=== PATIENT | male | born 1945 | race Two or more races ===

== ENCOUNTER → 2017-01-03 | Outpatient (CLI) | payer MEDICARE, BC ==
[2017-01-03 09:36] LABS: CLARITY URINE CLEAR (CLEAR); COLOR URINE YELLOW (YELLOW); GLUCOSE URINE NEGATIVE (NEGATIVE); KETONES URINE TRACE (NEGATIVE); LEUKOCYTE ESTERASE URINE NEGATIVE (NEGATIVE); NITRITE URINE NEGATIVE (NEGATIVE); OCCULT BLOOD URINE NEGATIVE (NEGATIVE); PROTEIN URINE NEGATIVE (NEGATIVE); UROBILINOGEN URINE 0.2 E.U./dL (0.2-1.0)
[2017-01-03 09:40] LABS: BASOPHILS % 0.8 % (0.0-2.0); EOSINOPHILS % 1.3 % (0.0-5.0); HEMATOCRIT. 41.5 % (42.0-52.0); HEMOGLOBIN. 14.1 g/dL (14.0-18.0); LYMPHOCYTES % 36.6 % (20.0-50.0); MEAN CORPUSCULAR HEMOGLOBIN 30.4 pg (28.0-32.0); MEAN CORPUSCULAR VOLUME 89.7 fL (80.0-94.0); MEAN PLATELET VOLUME 10.7 fl (7.4-10.4); MONOCYTES % 9.1 % (2.0-8.0); NEUTROPHILS % 52.2 % (40.0-76.0); PLATELET 128 x1000/uL (130-400); RED BLOOD CELL COUNT 4.62 mill/uL (4.7-6.1); RED CELL DISTRIBUTION WIDTH 13.7 % (11.6-14.6)
[2017-01-03 09:59] LABS: CARBON DIOXIDE 27 mEq/L (21-32); CHLORIDE 105 mEq/L (98-107); HDL CHOLESTEROL 97 mg/dL (40-59); LDL CHOLESTEROL 86 mg/dL (5-100)
== END | disposition home or self-care (01) ==
LOC: LAB 09:13
PROVIDERS: ATTEND Internal Medicine Nephrology
DX: R53.83 Other fatigue (principal); R79.89 Other specified abnormal findings of blood chemistry; R39.15 Urgency of urination; R97.20 Elevated prostate specific antigen [PSA]
CPT/HCPCS: 36415; 80053; 80061; 81003; 83036; 84153; 85025

== ENCOUNTER → 2017-04-05 | Outpatient (CLI) | payer MEDICARE, BC ==
[2017-04-05 12:28] LABS: BASOPHILS % 0.8 % (0.0-2.0); EOSINOPHILS % 2.3 % (0.0-5.0); HEMATOCRIT. 46.5 % (42.0-52.0); HEMOGLOBIN. 15.5 g/dL (14.0-18.0); LYMPHOCYTES % 40.8 % (20.0-50.0); MEAN CORPUSCULAR HEMOGLOBIN 30.6 pg (28.0-32.0); MEAN CORPUSCULAR VOLUME 91.6 fL (80.0-94.0); MEAN PLATELET VOLUME 10.9 fl (7.4-10.4); MONOCYTES % 10.8 % (2.0-8.0); NEUTROPHILS % 45.3 % (40.0-76.0); PLATELET 114 x1000/uL (130-400); RED BLOOD CELL COUNT 5.08 mill/uL (4.7-6.1); RED CELL DISTRIBUTION WIDTH 13.8 % (11.6-14.6)
[2017-04-05 12:30] LABS: CARBON DIOXIDE 31 mEq/L (21-32); CHLORIDE 107 mEq/L (98-107); HDL CHOLESTEROL 110 mg/dL (40-59); LDL CHOLESTEROL 89 mg/dL (5-100)
== END | disposition home or self-care (01) ==
LOC: LAB 11:57
PROVIDERS: ATTEND Internal Medicine Nephrology
DX: I10 Essential (primary) hypertension (principal); E11.9 Type 2 diabetes mellitus without complications; E78.5 Hyperlipidemia, unspecified; R97.20 Elevated prostate specific antigen [PSA]
CPT/HCPCS: 36415; 80053; 80061; 83036; 84153; 85025

== ENCOUNTER → 2017-09-08 | Outpatient (CLI) | payer MEDICARE, BC ==
[2017-09-08 10:32] LABS: BASOPHILS % 0.8 % (0.0-2.0); EOSINOPHILS % 1.7 % (0.0-5.0); HEMATOCRIT. 46.4 % (42.0-52.0); HEMOGLOBIN. 15.4 g/dL (14.0-18.0); LYMPHOCYTES % 40.9 % (20.0-50.0); MEAN CORPUSCULAR HEMOGLOBIN 30.5 pg (28.0-32.0); MEAN PLATELET VOLUME 10.7 fl (7.4-10.4); MONOCYTES % 10.7 % (2.0-8.0); NEUTROPHILS % 45.9 % (40.0-76.0); PLATELET 134 x1000/uL (130-400); RED BLOOD CELL COUNT 5.04 mill/uL (4.7-6.1); RED CELL DISTRIBUTION WIDTH 13.9 % (11.6-14.6)
[2017-09-08 10:56] LABS: CHLORIDE 105 mEq/L (98-107)
[2017-09-08 11:00] LABS: HDL CHOLESTEROL 110 mg/dL (40-59); LDL CHOLESTEROL 78 mg/dL (5-100)
== END | disposition home or self-care (01) ==
LOC: LAB 10:15
PROVIDERS: ATTEND Internal Medicine Critical Care Medicine
DX: E11.9 Type 2 diabetes mellitus without complications (principal); R53.83 Other fatigue; E78.5 Hyperlipidemia, unspecified; N40.1 Benign prostatic hyperplasia with lower urinary tract symptoms
CPT/HCPCS: 36415; 80053; 80061; 83036; 84153; 85025

== ENCOUNTER → 2017-12-08 | Outpatient (CLI) | payer MEDICARE, BC ==
[2017-12-08 10:34] LABS: BASOPHILS % 0.7 % (0.0-2.0); EOSINOPHILS % 2.1 % (0.0-5.0); HEMATOCRIT. 45.9 % (42.0-52.0); HEMOGLOBIN. 15.4 g/dL (14.0-18.0); LYMPHOCYTES % 37.3 % (20.0-50.0); MEAN CORPUSCULAR HEMOGLOBIN 30.8 pg (28.0-32.0); MEAN CORPUSCULAR VOLUME 91.7 fL (80.0-94.0); MEAN PLATELET VOLUME 11.1 fl (7.4-10.4); MONOCYTES % 10.5 % (2.0-8.0); NEUTROPHILS % 49.4 % (40.0-76.0); PLATELET 123 x1000/uL (130-400); RED CELL DISTRIBUTION WIDTH 13.9 % (11.6-14.6)
[2017-12-08 10:35] LABS: CLARITY URINE CLOUDY (CLEAR); COLOR URINE YELLOW (YELLOW); KETONES URINE NEGATIVE (NEGATIVE); LEUKOCYTE ESTERASE URINE NEGATIVE (NEGATIVE); NITRITE URINE NEGATIVE (NEGATIVE); OCCULT BLOOD URINE NEGATIVE (NEGATIVE); PROTEIN URINE NEGATIVE (NEGATIVE); SPECIFIC GRAVITY URINE 1.019 (1.005-1.030); UROBILINOGEN URINE 0.2 E.U./dL (0.2-1.0)
[2017-12-08 10:42] LABS: CHLORIDE 107 mEq/L (98-107)
[2017-12-08 10:50] LABS: HDL CHOLESTEROL 109 mg/dL (40-59); LDL CHOLESTEROL 102 mg/dL (5-100)
[2017-12-08 10:52] LABS: T4 FREE 1.06 ng/dL (0.76-1.46)
== END | disposition home or self-care (01) ==
LOC: LAB 10:04 → EEVIPCON 10:04
PROVIDERS: ATTEND Internal Medicine
DX: R73.03 Prediabetes (principal); I10 Essential (primary) hypertension; E78.5 Hyperlipidemia, unspecified; F10.10 Alcohol abuse, uncomplicated; N40.0 Benign prostatic hyperplasia without lower urinary tract symptoms; R35.1 Nocturia; R39.15 Urgency of urination
CPT/HCPCS: 36415; 80053; 80061; 81003; 83036; 84153; 84439; 84443; 85025

== ENCOUNTER → 2018-02-15 | Outpatient (CLI) | payer MEDICARE, BC | END | disposition home or self-care (01) | LOC: MRI 08:23 | PROVIDERS: ATTEND Neurological Surgery | DX: M41.86 Other forms of scoliosis, lumbar region (principal); M48.061 Spinal stenosis, lumbar region without neurogenic claudication; M51.24 Other intervertebral disc displacement, thoracic region; I10 Essential (primary) hypertension; E78.5 Hyperlipidemia, unspecified | CPT/HCPCS: 72141; 72146; 72148 ==

== ENCOUNTER → 2018-02-28 | Outpatient (CLI) | payer MEDICARE, BC ==
[~2018-02-28] MED LIST: IOHEXOL-300 100 ML BOTTLE ONE
[2018-02-28 10:41] LABS: BASOPHILS % 0.8 % (0.0-2.0); EOSINOPHILS % 0.3 % (0.0-5.0); HEMATOCRIT. 44.9 % (42.0-52.0); HEMOGLOBIN. 14.9 g/dL (14.0-18.0); LYMPHOCYTES % 28.6 % (20.0-50.0); MEAN CORPUSCULAR HEMOGLOBIN 30.5 pg (28.0-32.0); MEAN CORPUSCULAR VOLUME 92.1 fL (80.0-94.0); MEAN PLATELET VOLUME 10.3 fl (7.4-10.4); MONOCYTES % 7.9 % (2.0-8.0); NEUTROPHILS % 62.4 % (40.0-76.0); PLATELET 135 x1000/uL (130-400); RED BLOOD CELL COUNT 4.87 mill/uL (4.7-6.1); RED CELL DISTRIBUTION WIDTH 14.3 % (11.6-14.6)
[2018-02-28 10:57] LABS: CHLORIDE 105 mEq/L (98-107)
[2018-02-28 11:04] LABS: LDL CHOLESTEROL 85 mg/dL (5-100)
[2018-02-28 11:06] LABS: HDL CHOLESTEROL 112 mg/dL (40-59)
== END | disposition home or self-care (01) ==
LOC: LAB 10:11
PROVIDERS: ATTEND Internal Medicine Critical Care Medicine
DX: K56.41 Fecal impaction (principal); I10 Essential (primary) hypertension; E11.9 Type 2 diabetes mellitus without complications; N40.0 Benign prostatic hyperplasia without lower urinary tract symptoms; E78.5 Hyperlipidemia, unspecified
CPT/HCPCS: 36415; 74177; 80048; 80061; 83036; 84153; 85025; Q9967; G0103

== ENCOUNTER → 2018-11-13 | Outpatient (CLI) | payer MEDICARE, BC ==
[2018-11-13 11:05] LABS: CHLORIDE 110 mEq/L (98-107)
[2018-11-13 11:13] LABS: LDL CHOLESTEROL 77 mg/dL (5-100)
[2018-11-13 11:14] LABS: HDL CHOLESTEROL 96 mg/dL (40-59); T4 FREE 1.16 ng/dL (0.76-1.46)
[2018-11-13 12:52] LABS: PROSTRATE SPECIFIC AG TOTAL 1.39 ng/mL (0.0-4.0)
[2018-11-13 12:53] LABS: TRIOIODOTHYRONINE TOTAL 0.96 ng/ml (0.60-1.81)
[2018-11-14 15:02] LABS: BASOPHILS % 0.8 % (0.0-2.0); EOSINOPHILS % 1.6 % (0.0-5.0); HEMATOCRIT. 42.6 % (42.0-52.0); HEMOGLOBIN. 14.3 g/dL (14.0-18.0); LYMPHOCYTES % 43.4 % (20.0-50.0); MEAN CORPUSCULAR HEMOGLOBIN 30.9 pg (28.0-32.0); MEAN CORPUSCULAR VOLUME 91.9 fL (80.0-94.0); MEAN PLATELET VOLUME 10.6 fl (7.4-10.4); MONOCYTES % 11.2 % (2.0-8.0); PLATELET 127 x1000/uL (130-400); RED BLOOD CELL COUNT 4.64 mill/uL (4.7-6.1)
== END | disposition home or self-care (01) ==
LOC: LAB 10:02
PROVIDERS: ATTEND Internal Medicine Critical Care Medicine
DX: M81.0 Age-related osteoporosis without current pathological fracture (principal); J00 Acute nasopharyngitis [common cold]; E11.9 Type 2 diabetes mellitus without complications; I10 Essential (primary) hypertension; E78.5 Hyperlipidemia, unspecified; N40.0 Benign prostatic hyperplasia without lower urinary tract symptoms
CPT/HCPCS: 36415; 80061; 82248; 82306; 83036; 83735; 84153; 84439; 84443; 84480; 84550; G0103

== ENCOUNTER → 2019-04-05 | Outpatient (CLI) | payer MEDICARE, BC | END | disposition home or self-care (01) | LOC: RAD 13:11 | PROVIDERS: ATTEND Nurse Practitioner Acute Care | DX: R07.81 Pleurodynia (principal) | CPT/HCPCS: 71101 ==

== ENCOUNTER → 2019-07-10 | Outpatient (CLI) | payer MEDICARE, BC ==
[2019-07-10 12:46] LABS: BASOPHILS % 0.8 % (0.0-2.0); EOSINOPHILS % 1.6 % (0.0-5.0); HEMATOCRIT. 46.2 % (42.0-52.0); HEMOGLOBIN. 15.3 g/dL (14.0-18.0); LYMPHOCYTES % 41.7 % (20.0-50.0); MEAN CORPUSCULAR VOLUME 93.6 fL (80.0-94.0); MEAN PLATELET VOLUME 11.2 fl (7.4-10.4); MONOCYTES % 10.2 % (2.0-8.0); NEUTROPHILS % 45.7 % (40.0-76.0); PLATELET 124 x1000/uL (130-400); RED BLOOD CELL COUNT 4.93 mill/uL (4.7-6.1); RED CELL DISTRIBUTION WIDTH 14.2 % (11.6-14.6)
[2019-07-10 12:51] LABS: CHLORIDE 106 mEq/L (98-107)
[2019-07-10 12:59] LABS: LDL CHOLESTEROL 95 mg/dL (5-100)
[2019-07-10 13:00] LABS: HDL CHOLESTEROL 115 mg/dL (40-59)
== END | disposition home or self-care (01) ==
LOC: LAB 12:11
PROVIDERS: ATTEND Nurse Practitioner Acute Care
DX: J06.9 Acute upper respiratory infection, unspecified (principal); R53.83 Other fatigue; R79.89 Other specified abnormal findings of blood chemistry; N40.1 Benign prostatic hyperplasia with lower urinary tract symptoms
CPT/HCPCS: 36415; 80053; 80061; 83036; 84153; 84443; 85025; G0103

== ENCOUNTER 2019-09-18 11:38 | Emergency (ER) | payer MEDICARE, BC ==
[~2019-09-18] VITALS: Ht 170.2 cm; Wt 70.0 kg
[2019-09-18] MEDS ORDERED: TETANUS, DIPHTHERIA, PERTUSSIS VAC/PF 0.5ML (>7YR OLD) IM ONE (12:00)
[2019-09-18] MEDS ORDERED: BACITRACIN ZINC OINT UDPKT TOP ONE (12:00)
[2019-09-18] MEDS ORDERED: LIDOCAINE HCL/PF 1% 10 MG/ML 5ML VIAL IJ ONE (12:00)
[2019-09-18] MEDS ORDERED: IBUPROFEN 600MG TABLET PO ONE (12:00)
[2019-09-18 13:10] VITALS: BP 129/53
== END 2019-09-18 13:11 | disposition home or self-care (01) ==
LOC: ER 11:38
DX: S01.81XA Laceration without foreign body of other part of head, initial encounter (principal); W18.39XA Other fall on same level, initial encounter; Y93.89 Activity, other specified; Y92.89 Other specified places as the place of occurrence of the external cause; Y99.8 Other external cause status
CPT/HCPCS: 12013; 90471; 90715; 99283; J3490

== ENCOUNTER 2019-09-18 18:09 | Emergency (ER) | payer MEDICARE, BC ==
[~2019-09-18] VITALS: Ht 172.7 cm; Wt 60.0 kg
[2019-09-18 18:42] LABS: BASOPHILS % 0.4 % (0.0-2.0); EOSINOPHILS % 0.1 % (0.0-5.0); HEMATOCRIT. 42.5 % (42.0-52.0); HEMOGLOBIN. 14.5 g/dL (14.0-18.0); LYMPHOCYTES % 15.6 % (20.0-50.0); MEAN CORPUSCULAR HEMOGLOBIN 31.6 pg (28.0-32.0); MEAN CORPUSCULAR VOLUME 92.8 fL (80.0-94.0); MEAN PLATELET VOLUME 10.2 fl (7.4-10.4); MONOCYTES % 6.4 % (2.0-8.0); NEUTROPHILS % 77.5 % (40.0-76.0); PLATELET 132 x1000/uL (130-400); RED BLOOD CELL COUNT 4.58 mill/uL (4.7-6.1); RED CELL DISTRIBUTION WIDTH 13.7 % (11.6-14.6)
[2019-09-18 18:50] LABS: CHLORIDE 106 mEq/L (98-107)
[2019-09-18 19:42] VITALS: BP 116/66
== END 2019-09-18 19:44 | disposition home or self-care (01) ==
LOC: ER 18:09
DX: S09.90XA Unspecified injury of head, initial encounter (principal); E78.00 Pure hypercholesterolemia, unspecified; W19.XXXA Unspecified fall, initial encounter; Y93.89 Activity, other specified; Y92.89 Other specified places as the place of occurrence of the external cause; Y99.8 Other external cause status
CPT/HCPCS: 36415; 80053; 83036; 83880; 84484; 85025; 93005; 99285

== ENCOUNTER → 2020-01-01 | Outpatient (CLI) | payer MEDICARE, BC ==
[2020-01-01 11:44] LABS: BASOPHILS % 0.8 % (0.0-2.0); EOSINOPHILS % 1.6 % (0.0-5.0); HEMATOCRIT. 43.7 % (42.0-52.0); HEMOGLOBIN. 14.8 g/dL (14.0-18.0); LYMPHOCYTES % 40.6 % (20.0-50.0); MEAN CORPUSCULAR HEMOGLOBIN 31.3 pg (28.0-32.0); MEAN CORPUSCULAR VOLUME 92.3 fL (80.0-94.0); MEAN PLATELET VOLUME 10.8 fl (7.4-10.4); MONOCYTES % 9.7 % (2.0-8.0); NEUTROPHILS % 47.3 % (40.0-76.0); PLATELET 125 x1000/uL (130-400); RED BLOOD CELL COUNT 4.74 mill/uL (4.7-6.1); RED CELL DISTRIBUTION WIDTH 14.1 % (11.6-14.6)
[2020-01-01 11:49] LABS: CHLORIDE 107 mEq/L (98-107)
[2020-01-01 11:56] LABS: LDL CHOLESTEROL 91 mg/dL (5-100)
[2020-01-01 11:59] LABS: HDL CHOLESTEROL 99 mg/dL (40-59)
== END | disposition home or self-care (01) ==
LOC: LAB 11:22
PROVIDERS: ATTEND Nurse Practitioner Acute Care
DX: R73.09 Other abnormal glucose (principal); E78.9 Disorder of lipoprotein metabolism, unspecified; R92.8 Other abnormal and inconclusive findings on diagnostic imaging of breast; E03.8 Other specified hypothyroidism; N40.1 Benign prostatic hyperplasia with lower urinary tract symptoms
CPT/HCPCS: 36415; 80053; 80061; 83036; 84153; 84443; 85025; G0103

== ENCOUNTER 2020-07-12 10:20 | Emergency (ER) | payer MEDICARE, BC ==
[~2020-07-12] VITALS: Ht 167.6 cm; Wt 70.0 kg
[2020-07-12 11:21] LABS: BASOPHILS % 0.4 % (0.0-2.0); EOSINOPHILS % 0.1 % (0.0-5.0); HEMATOCRIT. 43.5 % (42.0-52.0); HEMOGLOBIN. 14.8 g/dL (14.0-18.0); LYMPHOCYTES % 33.3 % (20.0-50.0); MEAN PLATELET VOLUME 9.2 fl (7.4-10.4); MONOCYTES % 10.4 % (2.0-8.0); NEUTROPHILS % 55.8 % (40.0-76.0); PLATELET 90 x1000/uL (130-400); RED BLOOD CELL COUNT 4.79 mill/uL (4.7-6.1); RED CELL DISTRIBUTION WIDTH 13.8 % (11.6-14.6)
[2020-07-12 11:30] LABS: CHLORIDE 102 mEq/L (98-107)
[2020-07-12 11:33] LABS: D-DIMER 0.49 mg/L FEU (<0.50)
[2020-07-12 11:36] LABS: C REACTIVE PROTEIN QUANT 6.9 mg/L (0.0-3.0)
[2020-07-12 11:39] LABS: CREATINE KINASE 73 IU/L (39-308)
[2020-07-12 11:51] VITALS: BP 107/65
[2020-07-12 13:24] LABS: MONOTEST NEGATIVE (NEGATIVE)
== END 2020-07-12 12:36 | disposition home or self-care (01) ==
LOC: ER 10:22
DX: R05 Cough (principal); Z20.828 Contact with and (suspected) exposure to other viral communicable diseases; D69.6 Thrombocytopenia, unspecified
CPT/HCPCS: 36415; 71045; 80053; 82550; 82728; 83036; 83605; 83615; 83690; 83880; 84145; 84484; 85025; 85379; 85384; 85610; 86140; 86308; 87070; 87430; 87804; 93005; 99285; C9803; U0003

== ENCOUNTER → 2020-09-11 | Outpatient (CLI) | payer MEDICARE, BC ==
[2020-09-11 10:35] LABS: BASOPHILS % 0.9 % (0.0-2.0); EOSINOPHILS % 2.6 % (0.0-5.0); HEMATOCRIT. 43.3 % (42.0-52.0); HEMOGLOBIN. 14.4 g/dL (14.0-18.0); LYMPHOCYTES % 41.2 % (20.0-50.0); MEAN CORPUSCULAR VOLUME 92.9 fL (80.0-94.0); MEAN PLATELET VOLUME 10.2 fl (7.4-10.4); MONOCYTES % 9.1 % (2.0-8.0); NEUTROPHILS % 46.2 % (40.0-76.0); PLATELET 127 x1000/uL (130-400); RED BLOOD CELL COUNT 4.66 mill/uL (4.7-6.1)
[2020-09-11 10:57] LABS: CHLORIDE 111 mEq/L (98-107)
[2020-09-11 11:10] LABS: HDL CHOLESTEROL 112 mg/dL (40-59); LDL CHOLESTEROL 100 mg/dL (5-100)
== END | disposition home or self-care (01) ==
LOC: LAB 09:36
PROVIDERS: ATTEND Nurse Practitioner Acute Care
DX: R73.9 Hyperglycemia, unspecified (principal); R53.1 Weakness; E78.5 Hyperlipidemia, unspecified; N40.0 Benign prostatic hyperplasia without lower urinary tract symptoms
CPT/HCPCS: 36415; 80048; 80061; 80076; 83036; 84153; 84443; 85025; G0103

== ENCOUNTER → 2021-05-20 | Outpatient (CLI) | payer MEDICARE, BC | END | disposition home or self-care (01) | LOC: RAD 09:47 | PROVIDERS: ATTEND Internal Medicine | DX: M54.9 Dorsalgia, unspecified (principal); M85.88 Other specified disorders of bone density and structure, other site | CPT/HCPCS: 77080 ==

== ENCOUNTER → 2022-10-06 | Outpatient (CLI) | payer MEDICARE, BC ==
[2022-10-06 11:11] LABS: BASOPHILS % 0.6 % (0.0-2.0); EOSINOPHILS % 1.5 % (0.0-5.0); HEMATOCRIT. 45.9 % (42.0-52.0); HEMOGLOBIN. 15.2 g/dL (14.0-18.0); LYMPHOCYTES % 36.6 % (20.0-50.0); MEAN CORPUSCULAR HEMOGLOBIN 30.4 pg (28.0-32.0); MEAN PLATELET VOLUME 9.8 fl (7.4-10.4); MONOCYTES % 8.4 % (2.0-8.0); NEUTROPHILS % 52.9 % (40.0-76.0); PLATELET 134 x1000/uL (130-400); RED CELL DISTRIBUTION WIDTH 14.3 % (11.6-14.6)
[2022-10-06 11:32] LABS: CHLORIDE 108 mEq/L (98-107)
[2022-10-06 11:52] LABS: HDL CHOLESTEROL 104 mg/dL (40-59); LDL CHOLESTEROL 96 mg/dL (5-100); T4 FREE 1.18 ng/dL (0.76-1.46)
== END | disposition home or self-care (01) ==
LOC: LAB 10:46
PROVIDERS: ATTEND Internal Medicine Cardiovascular Disease
DX: N40.0 Benign prostatic hyperplasia without lower urinary tract symptoms (principal); R53.83 Other fatigue; I10 Essential (primary) hypertension; E11.9 Type 2 diabetes mellitus without complications
CPT/HCPCS: 36415; 80053; 80061; 83036; 84153; 84439; 84443; 84481; 85025; G0103

== ENCOUNTER → 2023-09-29 | Outpatient (CLI) | payer MEDICARE, BC ==
[2023-09-29 09:36] LABS: BASOPHILS % 0.8 % (0.0-2.0); EOSINOPHILS % 2.4 % (0.0-5.0); HEMATOCRIT. 43.6 % (42.0-52.0); HEMOGLOBIN. 14.2 g/dL (14.0-18.0); LYMPHOCYTES % 47.6 % (20.0-50.0); MEAN CORPUSCULAR HEMOGLOBIN 30.2 pg (28.0-32.0); MEAN CORPUSCULAR HGB CONC 32.5 g/dL (31.0-37.0); MEAN CORPUSCULAR VOLUME 92.8 fL (80.0-94.0); MEAN PLATELET VOLUME 10.1 fl (7.4-10.4); MONOCYTES % 10.2 % (2.0-8.0); PLATELET 118 x1000/uL (130-400); RED BLOOD CELL COUNT 4.69 mill/uL (4.7-6.1); RED CELL DISTRIBUTION WIDTH 14.4 % (11.6-14.6); WHITE BLOOD COUNT 4.9 x1000/uL (4.5-11.0)
[2023-09-29 10:02] LABS: ALANINE AMINOTRANSFERASE 22 IU/L (10-49); ALBUMIN 4.1 g/dL (3.2-4.8); ASPARTATE AMINOTRANSFERASE 25 IU/L (<34); BILIRUBIN TOTAL 0.9 mg/dL (0.1-1.0); CALCIUM 8.8 mg/dL (8.7-10.4); CARBON DIOXIDE 31 mEq/L (21-32); CHLORIDE 107 mEq/L (98-107); CHOLESTEROL 195 mg/dL (<200); GLUCOSE 86 mg/dL (70-105); HDL CHOLESTEROL 83 mg/dL (>55); LDL CHOLESTEROL 95 mg/dL (5-100); POTASSIUM 4.3 mEq/L (3.5-5.1); PROTEIN TOTAL 6.6 g/dL (6.0-8.3); SODIUM 141 mEq/L (136-145); THYROID STIMULATING HORMONE 1.62 uIU/mL (0.55-4.78); TRIGLYCERIDE 58 mg/dL (0-150); UREA NITROGEN BLOOD 11 mg/dL (9-23)
== END | disposition home or self-care (01) ==
LOC: LAB 09:11
PROVIDERS: ATTEND Nurse Practitioner Acute Care
DX: I10 Essential (primary) hypertension (principal); E78.5 Hyperlipidemia, unspecified; D64.9 Anemia, unspecified; E11.9 Type 2 diabetes mellitus without complications; N40.0 Benign prostatic hyperplasia without lower urinary tract symptoms
CPT/HCPCS: 36415; 80053; 80061; 83036; 84153; 84443; 85025

== ENCOUNTER → 2024-02-22 | Outpatient (CLI) | payer MEDICARE, BC ==
[2024-02-22 09:49] LABS: BASOPHILS % 0.6 % (0.0-2.0); EOSINOPHILS % 1.4 % (0.0-5.0); HEMATOCRIT. 45.7 % (42.0-52.0); LYMPHOCYTES % 34.9 % (20.0-50.0); MEAN CORPUSCULAR HEMOGLOBIN 30.7 pg (28.0-32.0); MEAN CORPUSCULAR HGB CONC 32.8 g/dL (31.0-37.0); MEAN CORPUSCULAR VOLUME 93.5 fL (80.0-94.0); MEAN PLATELET VOLUME 10.3 fl (7.4-10.4); MONOCYTES % 6.3 % (2.0-8.0); NEUTROPHILS % 56.8 % (40.0-76.0); PLATELET 116 x1000/uL (130-400); RED BLOOD CELL COUNT 4.88 mill/uL (4.7-6.1); WHITE BLOOD COUNT 6.4 x1000/uL (4.5-11.0)
[2024-02-22 09:57] LABS: CHLORIDE 107 mEq/L (98-107); POTASSIUM 4.7 mEq/L (3.5-5.1); SODIUM 141 mEq/L (136-145)
[2024-02-22 09:58] LABS: CARBON DIOXIDE 30 mEq/L (21-32)
[2024-02-22 09:59] LABS: CALCIUM 9.6 mg/dL (8.7-10.4)
[2024-02-22 10:03] LABS: GLUCOSE 93 mg/dL (70-105)
[2024-02-22 10:04] LABS: LDL CHOLESTEROL 81 mg/dL (5-100); TRIGLYCERIDE 58 mg/dL (0-150); UREA NITROGEN BLOOD 10 mg/dL (9-23)
[2024-02-22 10:05] LABS: CHOLESTEROL 177 mg/dL (<200); HDL CHOLESTEROL 83 mg/dL (>55)
[2024-02-22 10:07] LABS: T4 FREE 1.33 ng/dL (0.89-1.76)
[2024-02-22 10:08] LABS: THYROID STIMULATING HORMONE 1.37 uIU/mL (0.55-4.78)
== END | disposition home or self-care (01) ==
LOC: LAB 09:12
PROVIDERS: ATTEND Nurse Practitioner Acute Care
DX: E78.5 Hyperlipidemia, unspecified (principal); I10 Essential (primary) hypertension; R39.15 Urgency of urination; E11.9 Type 2 diabetes mellitus without complications
CPT/HCPCS: 36415; 80048; 80061; 83036; 84153; 84439; 84443; 85025

== ENCOUNTER → 2024-09-07 | Outpatient (CLI) | payer MEDICARE, BC ==
[2024-09-07 11:56] LABS: CHLORIDE 107 mEq/L (98-107); POTASSIUM 4.5 mEq/L (3.5-5.1); SODIUM 144 mEq/L (136-145)
[2024-09-07 11:57] LABS: CALCIUM 9.4 mg/dL (8.7-10.4); CARBON DIOXIDE 33 mEq/L (21-32)
[2024-09-07 12:02] LABS: GLUCOSE 99 mg/dL (70-105); TRIGLYCERIDE 66 mg/dL (0-150); UREA NITROGEN BLOOD 13 mg/dL (9-23)
[2024-09-07 12:03] LABS: LDL CHOLESTEROL 88 mg/dL (5-100)
[2024-09-07 12:04] LABS: CHOLESTEROL 188 mg/dL (<200); HDL CHOLESTEROL 78 mg/dL (>55)
[2024-09-07 12:06] LABS: BASOPHILS % 0.6 % (0.0-2.0); EOSINOPHILS % 1.6 % (0.0-5.0); HEMOGLOBIN. 14.8 g/dL (14.0-18.0); LYMPHOCYTES % 29.4 % (20.0-50.0); MEAN CORPUSCULAR HEMOGLOBIN 29.3 pg (28.0-32.0); MEAN CORPUSCULAR HGB CONC 32.1 g/dL (31.0-37.0); MEAN CORPUSCULAR VOLUME 91.2 fL (80.0-94.0); MEAN PLATELET VOLUME 10.3 fl (7.4-10.4); NEUTROPHILS % 59.4 % (40.0-76.0); PLATELET 124 x1000/uL (130-400); RED BLOOD CELL COUNT 5.04 mill/uL (4.7-6.1); RED CELL DISTRIBUTION WIDTH 14.3 % (11.6-14.6); WHITE BLOOD COUNT 7.6 x1000/uL (4.5-11.0)
[2024-09-08 08:10] LABS: % FREE PSA 11.7 % (.); PROSTATE SPECIFIC AG TOTAL 4.1 ng/mL (0.0-4.0); PSA FREE 0.48 ng/mL
== END | disposition home or self-care (01) ==
LOC: LAB 11:09
PROVIDERS: ATTEND Nurse Practitioner Acute Care
DX: E78.5 Hyperlipidemia, unspecified (principal); R73.9 Hyperglycemia, unspecified; R35.0 Frequency of micturition; R53.83 Other fatigue
CPT/HCPCS: 36415; 80048; 80061; 83036; 84153; 84154; 85025

== ENCOUNTER → 2024-12-06 | Outpatient (CLI) | payer MEDICARE, BC ==
[2024-12-06 10:02] LABS: EOSINOPHILS % 2.4 % (0.0-5.0); HEMATOCRIT. 40.7 % (42.0-52.0); HEMOGLOBIN. 13.5 g/dL (14.0-18.0); LYMPHOCYTES % 37.6 % (20.0-50.0); MEAN CORPUSCULAR HEMOGLOBIN 30.2 pg (28.0-32.0); MEAN CORPUSCULAR HGB CONC 33.2 g/dL (31.0-37.0); MEAN CORPUSCULAR VOLUME 90.9 fL (80.0-94.0); MEAN PLATELET VOLUME 9.7 fl (7.4-10.4); MONOCYTES % 9.8 % (2.0-8.0); NEUTROPHILS % 49.2 % (40.0-76.0); PLATELET 144 x1000/uL (130-400); RED BLOOD CELL COUNT 4.48 mill/uL (4.7-6.1); RED CELL DISTRIBUTION WIDTH 14.2 % (11.6-14.6); WHITE BLOOD COUNT 5.2 x1000/uL (4.5-11.0)
[2024-12-06 10:10] LABS: CLARITY URINE TURBID (CLEAR); COLOR URINE YELLOW (YELLOW); GLUCOSE URINE NEGATIVE (NEGATIVE); KETONES URINE NEGATIVE (NEGATIVE); LEUKOCYTE ESTERASE URINE NEGATIVE (NEGATIVE); NITRITE URINE NEGATIVE (NEGATIVE); OCCULT BLOOD URINE NEGATIVE (NEGATIVE); PROTEIN URINE NEGATIVE (NEGATIVE); SPECIFIC GRAVITY URINE 1.018 (1.005-1.030); UROBILINOGEN URINE 0.2 E.U./dL (0.2-1.0)
[2024-12-06 10:20] LABS: CHLORIDE 105 mEq/L (98-107); POTASSIUM 4.3 mEq/L (3.5-5.1); SODIUM 143 mEq/L (136-145)
[2024-12-06 10:21] LABS: CARBON DIOXIDE 29 mEq/L (21-32)
[2024-12-06 10:26] LABS: CREATININE 0.9 mg/dL (0.6-1.3); TRIGLYCERIDE 43 mg/dL (0-150); UREA NITROGEN BLOOD 16 mg/dL (9-23)
[2024-12-06 10:27] LABS: LDL CHOLESTEROL 88 mg/dL (5-100)
[2024-12-06 10:28] LABS: ALANINE AMINOTRANSFERASE 36 IU/L (10-49); ALBUMIN 4.1 g/dL (3.2-4.8); ASPARTATE AMINOTRANSFERASE 50 IU/L (<34); BILIRUBIN TOTAL 0.7 mg/dL (0.1-1.0); CHOLESTEROL 181 mg/dL (<200); HDL CHOLESTEROL 80 mg/dL (>55); PROTEIN TOTAL 6.6 g/dL (6.0-8.3)
[2024-12-06 10:35] LABS: BACTERIA URINE 1+; RBC URINE 0-2 /hpf (0-2); SQUAMOUS EPITHELIAL CELL URINE NONE SEEN /lpf (RARE/1+); WBC URINE 0-2 /hpf (0-2); YEAST URINE NONE SEEN
[2024-12-06 10:39] LABS: AMORPHOUS SEDIMENT URINE 3+ /lpf
[2024-12-06 13:08] LABS: GLUCOSE 59 mg/dL (70-105)
== END | disposition home or self-care (01) ==
LOC: LAB 09:37
PROVIDERS: ATTEND Internal Medicine Critical Care Medicine
DX: E11.9 Type 2 diabetes mellitus without complications (principal); N40.1 Benign prostatic hyperplasia with lower urinary tract symptoms; N39.0 Urinary tract infection, site not specified
CPT/HCPCS: 36415; 80053; 80061; 81003; 83036; 85025

== ENCOUNTER 2025-01-09 14:01 | Emergency (ER) | payer MEDICARE, BC ==
[~2025-01-09] VITALS: Ht 162.6 cm; Wt 63.5 kg
[2025-01-09 14:10] VITALS: BP 114/64; PULSE 81; RESP 16; TEMP 36.8; O2SAT 99
[2025-01-09] MEDS ORDERED: AMOX1TAB16 MT (14:14)
[2025-01-09] MEDS: TETANUS, DIPHTHERIA, PERTUSSIS VAC/PF 0.5ML (>10YR OLD) IM ONE (14:37)
== END 2025-01-09 15:29 | disposition home or self-care (01) ==
LOC: ER 14:01
DX: S61.452A Open bite of left hand, initial encounter (principal); Z79.899 Other long term (current) drug therapy; Z88.8 Allergy status to other drugs, medicaments and biological substances; W54.0XXA Bitten by dog, initial encounter; Y93.89 Activity, other specified; Y92.89 Other specified places as the place of occurrence of the external cause; Y99.8 Other external cause status
CPT/HCPCS: 90471; 90715; 99283

== ENCOUNTER → 2025-05-08 | Outpatient (CLI) | payer MEDICARE, BC ==
[~2025-05-08] MED LIST changes: +AMOX1TAB16 MT; -IOHEXOL-300 100 ML BOTTLE ONE
[2025-05-08 10:21] LABS: CLARITY URINE CLEAR (CLEAR); COLOR URINE YELLOW (YELLOW); SPECIFIC GRAVITY URINE 1.010 (1.005-1.030)
[2025-05-08 10:22] LABS: GLUCOSE URINE NEGATIVE (NEGATIVE); KETONES URINE NEGATIVE (NEGATIVE); LEUKOCYTE ESTERASE URINE NEGATIVE (NEGATIVE); NITRITE URINE NEGATIVE (NEGATIVE); OCCULT BLOOD URINE NEGATIVE (NEGATIVE); PH URINE 8.0 (4.5-8.0); PROTEIN URINE NEGATIVE (NEGATIVE); UROBILINOGEN URINE 0.2 E.U./dL (0.2-1.0)
[2025-05-08 10:25] LABS: BASOPHILS % 1.0 % (0.0-2.0); EOSINOPHILS % 2.5 % (0.0-5.0); HEMATOCRIT. 43.8 % (42.0-52.0); HEMOGLOBIN. 14.3 g/dL (14.0-18.0); LYMPHOCYTES % 40.0 % (20.0-50.0); MEAN PLATELET VOLUME 10.5 fl (7.4-10.4); MONOCYTES % 8.9 % (2.0-8.0); NEUTROPHILS % 47.6 % (40.0-76.0); PLATELET 131 x1000/uL (130-400); RED BLOOD CELL COUNT 4.90 mill/uL (4.7-6.1); RED CELL DISTRIBUTION WIDTH 16.3 % (11.6-14.6)
[2025-05-08 10:38] LABS: CREATININE 1.0 mg/dL (0.6-1.3)
[2025-05-08 10:39] LABS: LDL CHOLESTEROL 91 mg/dL (5-100); TRIGLYCERIDE 57 mg/dL (0-150); UREA NITROGEN BLOOD 10 mg/dL (9-23)
[2025-05-08 10:40] LABS: ASPARTATE AMINOTRANSFERASE 32 IU/L (<34)
[2025-05-08 10:41] LABS: BILIRUBIN TOTAL 0.8 mg/dL (0.1-1.0); PROTEIN TOTAL 6.5 g/dL (6.0-8.3)
[2025-05-10 10:11] LABS: PROSTATE SPECIFIC AG TOTAL < 0.1 ng/mL (0.0-4.0); PSA FREE <0.02 ng/mL
== END | disposition home or self-care (01) ==
LOC: LAB 09:53
PROVIDERS: ATTEND Internal Medicine Critical Care Medicine
DX: N40.1 Benign prostatic hyperplasia with lower urinary tract symptoms (principal); N39.0 Urinary tract infection, site not specified; E78.00 Pure hypercholesterolemia, unspecified; D07.5 Carcinoma in situ of prostate; Z86.2 Personal history of diseases of the blood and blood-forming organs and certain disorders involving the immune mechanism
CPT/HCPCS: 36415; 80053; 80061; 81003; 83036; 84153; 84154; 85025